=== PATIENT | male | born 1985 | race Caucasian/White ===

== ENCOUNTER 2017-01-10 00:15 | Emergency (ER) | payer OTHER ==
[2017-01-10 00:52] VITALS: BP 143/87; PULSE 78; TEMP 97.4; BMI 27.1
[2017-01-10] MEDS ORDERED: KETOROLAC TROMETHAMINE 60 MG/2 ML VIAL IM ONE (01:08)
--- NOTE | 2017-01-10 01:08 | PDOC ---
History of Present Illness - General Chief Complaint: Back Pain Stated Complaint: BACK PAIN/[employer] Time Seen by Provider: 01/10/17 00:46 History Source: Patient Exam Limitations: No Limitations - History of Present Illness Occurred: reports: just prior to arrival Pain Location: reports: back Method of Injury: Yes: fall Past History - Past Medical History Allergies/Adverse Reactions: Allergies Allergy/AdvReac Type Severity Reaction Status Date / Time No Known Allergies Allergy Verified 01/10/17 00:51 Home Medications: Ambulatory Orders NK [No Known Home Medication] 01/10/17 Suicide Attempt (Hx): No - Immunization History Td Vaccination: Yes Immunization Up to Date: Yes - Psycho/Social/Smoking Cessation Hx Anxiety: No Suicidal Ideation: No Smoking Status: No Smoking History: Never smoked Years of Tobacco Use: 0 Have you smoked in the past 12 months: No Number of Cigarettes Smoked Daily: 0 Cigars Per Day: 0 Information on smoking cessation initiated: No Hx Alcohol Use: No Drug/Substance Use Hx: No Substance Use Type: None *Physical Exam - Vital Signs Last Vital Signs Temp Pulse Resp BP Pulse Ox 97.4 F L 78 20 143/87 99 01/10/17 00:51 01/10/17 00:51 01/10/17 00:51 01/10/17 00:51 01/10/17 00:51 *DC/Admit/Observation/Transfer Diagnosis at time of Disposition: Back strain Qualifiers: Encounter type: initial encounter Qualified Code(s): S39.012A - Strain of muscle, fascia and tendon of lower back, initial encounter - Discharge Dispostion Disposition: HOME Condition at time of disposition: Stable Admit: No - Referrals Referrals: Augie Fitzgerald MD [Staff Physician] - - Patient Instructions Printed Discharge Instructions: DI for Back Strain or Sprain Additional Instructions: Tylenol/Motrin as needed for pain Return to the ER for severe/persistent/worsening symptoms
[2017-01-10] MEDS ORDERED: KETOROLAC TROMETHAMINE 60 MG/2 ML VIAL ONE (01:12)
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
== END 2017-01-10 02:05 | disposition home or self-care (01) ==
LOC: JER 00:15
DX: S39.012A Strain of muscle, fascia and tendon of lower back, initial encounter (principal); X50.0XXA Overexertion from strenuous movement or load, initial encounter; Y93.39 Activity, other involving climbing, rappelling and jumping off; Y92.89 Other specified places as the place of occurrence of the external cause; Y99.0 Civilian activity done for income or pay
CPT/HCPCS: 99283-25

== ENCOUNTER 2017-12-08 17:47 | Emergency (ER) | payer OTHER ==
[2017-12-08 18:04] VITALS: BP 136/85; PULSE 75; TEMP 97.4; BMI 26.4
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
[2017-12-08] MEDS ORDERED: DIPHTH,PERTUSS(ACELL),TET 0.5 ML DISP.SYRIN IM ONE (18:05)
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
== END 2017-12-08 18:54 | disposition home or self-care (01) ==
LOC: JERFT 17:47
PROC: 3E0234Z Introduction of Serum, Toxoid and Vaccine into Muscle, Percutaneous Approach (ICD-10-PCS; principal; 2017-12-08)
DX: S69.81XA Other specified injuries of right wrist, hand and finger(s), initial encounter (principal); Y35.811A Legal intervention involving manhandling, law enforcement official injured, initial encounter; Y93.89 Activity, other specified; Y92.89 Other specified places as the place of occurrence of the external cause; Y99.0 Civilian activity done for income or pay
CPT/HCPCS: 90715; 99281-25

== ENCOUNTER 2018-12-10 16:16 | Emergency (ER) | payer OTHER ==
[2018-12-10 16:21] VITALS: BP 127/87; PULSE 92; TEMP 98.3; BMI 26.4
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
== END 2018-12-10 16:44 | disposition home or self-care (01) ==
LOC: JERFT 16:16
DX: S46.812A Strain of other muscles, fascia and tendons at shoulder and upper arm level, left arm, initial encounter (principal); S60.413A Abrasion of left middle finger, initial encounter; S60.412A Abrasion of right middle finger, initial encounter; Y35.811A Legal intervention involving manhandling, law enforcement official injured, initial encounter; Y93.89 Activity, other specified; Y92.89 Other specified places as the place of occurrence of the external cause; Y99.0 Civilian activity done for income or pay
CPT/HCPCS: 99281-25